=== PATIENT | female | born 1990 | race Caucasian/White ===

== ENCOUNTER 2021-09-17 19:09 | Inpatient (IN) | payer MEDICAID, SELFPAY ==
[2021-09-17] VITALS (10 sets, daily range): BP systolic 115–137; BP diastolic 46–83; PULSE 65–105; RESP 18; TEMP 36.4; O2SAT 99; BMI 25.0
[2021-09-17 19:08] LABS: Amphetamines Screen Urine Negative (Negative); Barbiturates Screen Urine Negative (Negative); Benzodiazepines Screen Urine Negative (Negative); Cocaine Screen Urine Negative (Negative); Opiate Screen Urine Negative (Negative); PCP Screen Urine Negative (Negative); THC Screen Urine Negative (Negative)
[2021-09-17] MEDS: lactated ringers 1,000 ML 999 ML IV (19:22)
[2021-09-17 19:25] LABS: Basophils # 0.1 10^3/uL (0.0-0.1); Basophils % 0.6 %; Eosinophils # 0.1 10^3/uL (0.0-0.8); Eosinophils % 0.6 %; Hematocrit 35.3 % (37.0-47.0); Hemoglobin 11.8 g/dL (11.5-15.3); Lymphocytes # 2.1 10^3/uL (0.8-4.8); Lymphocytes % 19.6 %; Mean Corpuscular HGB Conc 33.4 g/dL (30.0-36.0); Mean Corpuscular Volume 95.7 fl (81-99); Mean Platelet Volume 12.4 fL (7.4-10.4); Monocytes % 8.9 %; Neutrophils # 7.57 10^3/uL (1.8-7.7); Nucleated Red Blood Cells % 0 %; Platelet Count 175 10^3/cmm (130-400); Red Blood Count 3.69 10^6/uL (4.1-5.3); Red Cell Distribution Width 12.9 % (12.1-15.1); White Blood Count 10.8 10^3/uL (4.0-10.0)
[2021-09-17] MEDS: oxytocin 30 UNIT/500 ML BAG 600 UNIT IV (19:42)
--- NOTE | 2021-09-17 20:26 | PM.OPHPUD ---
Labor & Delivery H&P Update Date of Procedure: September 17, 2021 Date H&P Performed: 09/11/21 Changes to previous documentation: Active labor Admission Diagnosis: Preop diagnosis: Planning of labor analgesia
--- NOTE | 2021-09-17 20:40 | P.PCNOB_ITS ---
Delivery Note: Date of delivery: September 17, 2021 Pre-Delivery Course: The patient had late onset care starting at 29 weeks gestation. She was blood type a positive antibody negative, hepatitis B surface antigen nonreactive, hepatitis C antibody nonreactive, HIV nonreactive, RPR nonreactive, rubella immune, GC chlamydia negative, she barely did not pass her first glucose screen at 144 and was unable to do a 3-hour so we repeated a 1 hour which she passed at 123. Her urine drug screen was positive for marijuana she was GBS negative. There were no notable complications during the . Delivery: This is a 31-year-old at 39 weeks 3 days gestation who presented to labor and delivery in active labor. She was 5 cm dilated with a bulging bag of water. She was admitted for expectant management. She had spontaneous rupture of membranes with clear fluid and rapid progression of labor. She did not have time to receive an epidural. Approximately 90 minutes from presenting to the hospital she had a normal spontaneous vaginal delivery of a viable male weight 3060 g, 6 pounds 12 ounces, Apgars 6 and 8 over an intact perineum. The was suctioned at delivery and placed on the mother's chest. The cord was clamped and cut. The placenta was delivered grossly intact and normal to inspection. There were some first-degree bilateral labial lacerations. Only one required suturing with 3-0 Vicryl. Mother was doing well after delivery. The was having some transient tachypnea and was transferred to the nursery. EBL 250mL. 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
[2021-09-18] VITALS (14 sets, daily range): BP systolic 109–149; BP diastolic 68–98; PULSE 68–89; RESP 15–18; TEMP 36.5–36.9; O2SAT 98–100
--- NOTE | 2021-09-18 06:27 | PC.NURSE ---
Hotline call made for late to care at 29 weeks.
--- NOTE | 2021-09-18 09:21 | PC.NURSE ---
Spoke with Tiffanie in OR, tubal added on for 1200. Dr. Thomas notified.
[2021-09-18 09:44] LABS: Hematocrit 34.9 % (37.0-47.0); Hemoglobin 11.5 g/dL (11.5-15.3); Mean Corpuscular Hemoglobin 32.3 pg (28.0-34.0); Mean Platelet Volume 13.1 fL (7.4-10.4); Platelet Count 187 10^3/cmm (130-400); Red Blood Count 3.56 10^6/uL (4.1-5.3); White Blood Count 15.1 10^3/uL (4.0-10.0)
[2021-09-18] MEDS: lactated ringers 1,000 ML 999 ML IV ×2 (11:06→14:07)
[2021-09-18] MEDS: citric acid-sodium citrate 30 mL UDC PO (11:46)
[2021-09-18] MEDS: famotidine 20 mg/2 mL INJ IVP (11:47)
[2021-09-18] MEDS: metoclopramide 5 mg/mL SDV 2 mL 10 MG IVP (11:47)
--- NOTE | 2021-09-18 12:18 | P.PN_ITS ---
Subjective Subjective: She is doing well on day #1. She is ambulating and has average vaginal bleeding. She has been n.p.o. since midnight for her scheduled bilateral tubal ligation this morning. She definitely wishes to proceed with surgical sterilization. Vitals/I&O/Wt Last Vital Signs Temp 98.1 F 09/18/21 07:40 Pulse 78 09/18/21 07:40 Resp 18 09/18/21 07:40 BP 116/74 09/18/21 07:40 Pulse Ox 99 09/18/21 05:20 09/17/21 09/18/21 09/18/21 22:59 06:59 14:59 Output Total 300 / 300 Balance -300 / -300 Weight last 48 hrs Weight 66.224 kg Physical Exam Narrative: Alert and oriented sitting up in bed, heart regular rate and rhythm, lungs clear to auscultation bilaterally, abdomen soft and nontender, fundus firm and U- 2, extremities have no calf tenderness and no edema Data : 09/18/21 08:25 A&P Assessment and plan (1) Normal spontaneous vaginal delivery: Routine care Status: Acute (2) Late care affecting : Status: Acute (3) Request for sterilization: Plan for bilateral tubal ligation as soon as anesthesia arrives. 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
--- NOTE | 2021-09-18 12:18 | P.ANESUD_ITS ---
Pre-Anesthetic Update Pre-Anesthetic Assessment: Date of Surgery/Procedure: 09/18/21 Preop Margret gnosis: Planning of labor analgesia Proposed Procedure: Operation Date: 09/18/21 12:00 Proposed Procedures p Bilateral Tubal Ligation(Bilateral) - Gaby Thomas MD Any changes to Pre-Anesthetic Assessment?: No Labs Last 48hrs: Short CBC 09/17/21 09/18/21 Range/Units 19:13 08:25 WBC 10.8 H 15.1 H (4.0-10.0) 10^3/ uL Hgb 11.8 11.5 (11.5-15.3) g/dL Hct 35.3 L 34.9 L (37.0-47.0) % MCV 95.7 98.0 (81-99) fl Plt Count 175 187 (130-400) 10^3/c mm Neut % (Auto) 70.0 % Neut # (Auto) 7.57 (1.8-7.7) 10^3/u L Vitals: Temperature 98.1 F 09/18/21 07:40 Temperature Source Oral 09/18/21 07:40 Pulse Rate 78 09/18/21 07:40 Pulse Rhythm 09/18/21 01:35 Pulse Strength 3+ Normal 09/18/21 07:40 Respiratory Rate 18 09/18/21 07:40 Respiratory Effort Non-Labored 09/18/21 01:35 Respiratory Depth Normal 09/18/21 01:35 Respiratory Patter n 09/18/21 07:40 Blood Pressure 116/74 09/18/21 07:40 Blood Pressure Gris n 88 09/18/21 07:40 Blood Pressure Pos ition Semi Fowlers 09/18/21 07:40 Pulse Oximetry 99 09/18/21 05:20 Oxygen Delivery Me thod 09/18/21 07:40 Exam: Pre-Anes Outpt Exam: alert, oriented x 3, clear to auscultation bilaterally and regular rate & rhythm Cardiac Studies: No Data to Display
--- NOTE | 2021-09-18 13:09 | PM.OP ---
Operative Report Date of procedure: September 18, 2021 Pre-op diagnosis: Surgical sterilization desired Procedure done: bilateral tubal ligation Specimens removed/disposition: Segments of right and left fallopian tubes Surgeon: Gaby Thomas MD Anesthesia: General Estimated blood loss: Less than 5 mL IV fluids: 200 mL Urine output: 100 mL prior to procedure Complications: None Procedure: The patient was taken to the OR where general anesthesia was administered. She was prepped and draped in normal sterile fashion in dorsal supine position. A curvilinear infraumbilical incision was made with a scalpel and then carried through to the underlying layer of fascia bluntly using a hemostat. The fascia was grasped with an Allis clamp and entered sharply using the Metzenbaums. The peritoneum was then entered bluntly using a hemostat. The left fallopian tube was grasped with a Serjio and brought into the operative field. Fimbria were identified. A distal segment of the tube was ligated and excised. Ostia were visualized. Cut portions of the tube were coagulated using the Bovie. Specimen was sent to pathology. After hemostasis was verified the cut portions of the tube were returned to the abdomen. The right fallopian tube was then grasped with a [place] and brought into the operative field. Fimbria were identified. A midportion of the tube was ligated and excised. Tubal ostia were visualized. The cut portions of the tube were coagulated using the Bovie and after hemostasis was verified they were returned to the abdomen. Specimen of the right fallopian tube was sent to pathology. The peritoneum and fascia was then reapproximated using 0 Vicryl in a running fashion. The skin was then reapproximated using 4-0 Vicryl in a running fashion. Steri-Strips and a pressure bandage were applied and patient went to recovery in good condition. Sponge instrument and needle counts were correct.
--- NOTE | 2021-09-18 13:19 | P.PCN_ITS ---
PACU note Narrative: VSS, Good respiratory effort, report to EVENT SECURITY OFFICER Exam: awake
--- NOTE | 2021-09-18 13:19 | PM.PACU ---
PACU note Narrative: VSS, Good respiratory effort, report to SISAL OPERATOR Exam: awake
--- NOTE | 2021-09-18 15:00 | ANE.PACU2 ---
Inpatient post-anesthesia follow up: Airway intact: Yes Vital signs: Temperature 98.1 F Pulse Rate 69 Respiratory Rate 18 Blood Pressure 122/78 Pulse Oximetry 98 Oxygen Delivery Me thod Room Air Oxygen Flow Rate Fraction of Inspir ed Oxygen Hydration adequate: Yes Nausea and vomiting: No Pain level: 2 Mental status: Baseline
[2021-09-18] MEDS: ibuprofen 800 mg tablet PO ×2 (15:16→21:15)
[2021-09-18] MEDS: docusate sodium 100 mg Capsule PO (18:18)
[2021-09-19] MEDS: HYDROcodone-acetaminophen 5-325 mg Tablet 2 TAB PO ×2 (01:22→07:59)
[2021-09-19] MEDS: prenatal vitamin Capsule 1 CAP PO (07:59)
[2021-09-19] MEDS: ibuprofen 800 mg tablet PO (07:59)
[2021-09-19] MEDS: docusate sodium 100 mg Capsule PO (07:59)
[2021-09-19 10:32] VITALS: BP 133/88; PULSE 89; RESP 16; TEMP 36.6
--- NOTE | 2021-09-19 10:55 | P.DS_ITS ---
Discharge Providers Date of Admission: 09/17/21 19:09 Date of Discharge: September 19, 2021 Attending Provider at Admission: Gaby Thomas MD Attending Provider at Discharge: aGby Thomas MD Diagnoses at Discharge Discharge Diagnosis (1) Normal spontaneous vaginal delivery: Status: Acute (2) Late care affecting : Status: Acute (3) Request for sterilization: Status: Acute Reason for Visit Reason for Visit: contractions Hospital Course Hospital Course This is a 31-year-old G3 now P2 who had a normal spontaneous vaginal delivery of a viable male . On day #1 she underwent a bilateral tubal ligation. On day #2 she was ambulating, tolerating a regular diet, had good pain control and was excited about discharge home. Physical Exam Narrative: Alert and oriented, walking around the room, lungs clear to auscultation bilaterally, heart regular rate and rhythm, abdomen is soft with appropriate postoperative tenderness, incision is clean dry and intact. Discharge Data Studies Completed and Pending Pending at discharge Category Date Time Status Pathology: Surgical [PTH] Routine Pth 09/18/21 13:41 Received Laboratory Results WBC 15.1 10^3/uL (4.0-10.0) H 09/18/21 08:25 RBC 3.56 10^6/uL (4.1-5.3) L 09/18/21 08:25 Hgb 11.5 g/dL (11.5-15.3) 09/18/21 08:25 Hct 34.9 % (37.0-47.0) L 09/18/21 08:25 MCV 98.0 fl (81-99) 09/18/21 08:25 MCH 32.3 pg (28.0-34.0) 09/18/21 08:25 MCHC 33.0 g/dL (30.0-36.0) 09/18/21 08:25 RDW 13.0 % (12.1-15.1) 09/18/21 08:25 Plt Count 187 10^3/cmm (130-400) 09/18/21 08:25 MPV 13.1 fL (7.4-10.4) H 09/18/21 08:25 Neut % (Auto) 70.0 % 09/17/21 19:13 Lymph % (Auto) 19.6 % 09/17/21 19:13 [place] % (Auto) 8.9 % 09/17/21 19:13 Eos % (Auto) 0.6 % 09/17/21 19:13 Baso % (Auto) 0.6 % 09/17/21 19:13 Neut # (Auto) 7.57 10^3/uL (1.8-7.7) 09/17/21 19:13 Lymph # (Auto) 2.1 10^3/uL (0.8-4.8) 09/17/21 19:13 [place] # (Auto) 1.0 10^3/uL (0.2-0.9) H 09/17/21 19:13 Eos # (Auto) 0.1 10^3/uL (0.0-0.8) 09/17/21 19:13 Baso # (Auto) 0.1 10^3/uL (0.0-0.1) 09/17/21 19:13 Nucleated RBC % (auto) 0 % 09/17/21 19:13 Nucleated RBCs # 0.0 /100WBC 09/17/21 19:13 Urine Opiates Screen Negative ng/mL (Negative) 09/17/21 18:30 Ur Barbiturates Screen Negative ng/mL (Negative) 09/17/21 18:30 Ur Phencyclidine Scrn Negative ng/mL (Negative) 09/17/21 18:30 Ur Amphetamines Screen Negative ng/mL (Negative) 09/17/21 18:30 U Benzodiazepines Scrn Negative ng/mL (Negative) 09/17/21 18:30 Urine Cocaine Screen Negative ng/mL (Negative) 09/17/21 18:30 U Marijuana (THC) Screen Negative ng/mL (Negative) 09/17/21 18:30 Vitals Last Vital Signs Temp 98.4 F 09/18/21 18:25 Pulse 68 09/18/21 18:25 Resp 18 09/18/21 18:25 BP 128/89 09/18/21 18:25 Pulse Ox 99 09/18/21 18:25 Discharge Plan Discharge Patient Disposition: Home Condition: Stable Prescriptions: New ibuprofen 800 mg Tablet 800 mg PO TID Qty: 30 0RF hydrocodone-acetaminophen 5-325 mg Tablet 1 tab PO Q4H PRN (Reason: Moderate To Severe Pain) Qty: 8 0RF Continued Vitamin 27 mg iron- 800 mcg Tablet 1 tab PO DAILY 0RF Discharge Orders: Discharge Order (Routine); Ordered 09/19/21 Ordered By: Gaby Thomas Referrals: Gaby Thomas MD [Physician] - 10/02/21 10:30 am (2week follow-up for 10/02/21 @10:30.) Discharge Diet: Usual diet Discharge Activity: Limit activity as instructed Patient Instructions: Depression (DC), Bleeding (DC), Preeclampsia and Eclampsia After Delivery (GEN), Tubal Ligation (DC), OB Discharge Report, OB Food/Drug Interaction Guide, Opioid Safety, OB Home Care, OB Vaginal Deliveries Activity Restrictions/Additional Instructions: Nothing per vagina for 6 weeks. No lifting greater than 10 lbs for 2 weeks Discharge Attestations Time Spent in Discharge Care*: less than 30 min Quality Metrics Clinical Quality Measures [ No reported AMI, CVA or VTE this stay] Coding Level of Care Code Acute Chg FW DC note Diagnoses Normal spontaneous vaginal delivery O80 Late care affecting O09.30 Request for sterilization Z30.2
[2021-09-19 13:17] VITALS: BP 130/85; PULSE 85; RESP 18; TEMP 36.8; O2SAT 99
== END 2021-09-19 13:02 | disposition home or self-care (01) | DRG 798 ==
LOC: OPOB 19:10 → OBGYN 19:10
PROVIDERS: Admitting Provider Family Medicine; Visit Provider Family Medicine
PROC: (CPT 58605; principal; 2021-09-18 12:00)
DX: O99.334 Smoking (tobacco) complicating childbirth (principal); Z37.0 Single live birth; O70.0 First degree perineal laceration during delivery; F17.210 Nicotine dependence, cigarettes, uncomplicated; O62.3 Precipitate labor; Z3A.39 39 weeks gestation of pregnancy; Z30.2 Encounter for sterilization
CPT/HCPCS: 36415; 59025; 59409; 80306; 85025; 85027; 88302; 99211; J0330; J0690; J2405; J2704; J2765; J3010; J3490